=== PATIENT | female | born 1945 | race Caucasian/White ===

== ENCOUNTER 2020-02-21 03:06 | Outpatient (CLI) | payer MEDICARE, OTHER, SELFPAY ==
--- NOTE | 2020-02-21 11:03 | DI.CTLCSR_ITS ---
EXAM: CT CHEST LUNG CANCER SCREEN CLINICAL HISTORY: FORMER SMOKER, Z87.891, SCREENING FOR LUNG CA TECHNIQUE: COMPARISON: CT CT CHEST WO CONTRAST from 03/11/2019 FINDINGS: CT examination the chest was performed utilizing low-dose lung cancer screening protocol. Images obtained through the upper abdomen show grossly unremarkable appearance of visualized portions of liver, spleen, pancreas, adrenals, and kidneys. No mediastinal or hilar adenopathy. Note is made of dilatation of the main pulmonary artery at 46 mi llimeters, right pulmonary artery also dilated at 34 millimeters, left pulmonary artery 25 millimeter diameter. Thoracic aorta is of normal diameter. Coronary artery calcifications noted. There are moderate to severe changes of centrilobular emphysema. Mild mosaic attenuation noted parti cularly in the lung bases. Tracheobronchial tree grossly unremarkable. There are areas of apparent scarring in right middle lobe and lingula unchanged in appearance comparison prior CT of February 2019 from [facility]. No new intrapulmonary nodule seen. IMPRESSION: Stable areas of scarring in lingula and right middle lobe. No intrapulmonary nodule. Lung RADS Cat 2 - Benign Appearance / Behavior: Nodules with a very low likelihood of becoming a clin ically active cancer due to size or lack of growth Continue annual LDCT screening in 12 months.
== END 2020-02-21 03:26 ==
PROVIDERS: PCP Family Medicine; Visit Provider Internal Medicine
DX: Z12.2 Encounter for screening for malignant neoplasm of respiratory organs (principal); Z87.891 Personal history of nicotine dependence; J43.9 Emphysema, unspecified; R91.8 Other nonspecific abnormal finding of lung field
CPT/HCPCS: G0297

== ENCOUNTER 2020-02-26 02:05 | Outpatient (CLI) | payer MEDICARE, OTHER, SELFPAY ==
--- NOTE | 2020-02-26 10:31 | DI.US_ITS ---
APPROVED REPORT EXAM: Comprehensive 2D, Doppler, and color-flow Echocardiogram Patient Location: Out-Patient Exterminator Termite: Katalina Cervantes RDCS (AE) Indications: SOB, COPD Other Information Study Quality: Fair Conclusion Left Ventricle : The left ventricle is normal size. The left ventricular systolic function is normal. The left ventricular ejection fraction is within the normal range. Mild concentric left ventricular hypertrophy. There is normal LV segmental wall motion. The left ventricular diastolic function is nor mal. LVEF is 45-50%. Right Ventricle : Right ventricle is not well visualized. Right ventricular systolic function could n ot be assessed. Atria : The left atrium size is normal. Right atrium is not well visualized. Valves: There are no hemodynamically significant valvular lesions. Great Vessels : The aortic root is normal in size. The ascending aorta is mildly dilated. IVC is norm al in size and collapses >50% with inspiration. Please see remainder of study for further details. Wall motion Left Ventricle The left ventricle is normal size. The left ventricular systolic function is normal. The left ventric ular ejection fraction is within the normal range. Mild concentric left ventricular hypertrophy. Ther e is normal LV segmental wall motion. The left ventricular diastolic function is normal. There is no ventricular septal defect visualized. LVEF is 45-50%. Right Ventricle Right ventricle is not well visualized. Right ventricular systolic function could not be assessed. Atria The left atrium size is normal. Right atrium is not well visualized. The interatrial septum is intact with no evidence for an atrial septal defect. Aortic Valve Aortic valve is trileaflet. Aortic valve is calcified. No hemodynamically significant valvular aortic stenosis. No aortic regurgitation is present. Mitral Valve The mitral valve is normal in structure. No evidence of mitral valve stenosis. Trace mitral regurgita tion. Tricuspid Valve The tricuspid valve is normal in structure. There is no tricuspid valve stenosis. Trace tricuspid reg urgitation. Unable to assess PA pressure. Pulmonic Valve The pulmonary valve is normal in structure. There is no pulmonic valvular stenosis. Trace pulmonic re gurgitation. Great Vessels The aortic root is normal in size. The ascending aorta is mildly dilated. IVC is normal in size and c ollapses >50% with inspiration. Pericardium Prominent anterior epicardial fat pad is present. 2D Dimensions IVSD d PLAX 1.13 cm F: 0.6-1.0 LV Vol A2C d MOD 57.4 mL LVPW d PLAX 1.12 cm F: 0.6 - 1.0 LV Vol A4C d MOD 79.2 mL LVID d PLAX 4.45 cm F: 3.8 - 5.2 LA vol/ BSA A2C s A-L 25.3 mL/m2 LVDs 3.20 cm F: 2.2 - 3.5 LA vol/ BSA A4C s A-L 34.6 mL/m2 Ao Root d 3.24 cm F: 2.7 - 3.3 LA Vol/ BSA Biplane s A-L 30.2 mL/m2 RA Area A4C 16.71 cm2 LA Area A4C s MOD 20.43 cm2 RA Vol/ BSA A4C s A-L 23.2 mL/m2 LA Area A2C s MOD 17.12 cm2 Ao Asc Diam d 3.48 cm F: 2.3 - 3.1 LV EF A4C MOD 45.1 % LV EF Teichholz 53.8 % LV EF A2C MOD 49.9 % LVEF (Carrillo's) 47.36 % F: 54 - 74 LV EF Biplane MOD 47.4 % LV Volume 56.02 mL F: 46 - 106 SV 33.69 mL LV Volume Index 32.19 mL/m2 F: 29 - 61 SV Index 19.38 mL/m2 LV Vol Biplane MOD 71.1 mL FS 27.65 % M-Mode TAPSE 2.53 cm (M/F) >1.7 LV Diastology MV E' medial 0.073 (>0.07 m/s) E/A Ratio 0.7 LV E/e MED 7.75 (<14) MV E Vmax 0.57 (0.4-1.3 m/s) MV E' lateral 0.064 (>0.1 m/s) MV A Vmax 0.85 (0.4-1.3 m/s) LV E/e LAT 8.90 (<14) MV E/A Ratio 0.63 MV E/E' medial 7.76 MV E/E' lateral 8.95 Aortic Valve LVOT Area 3.80 cm2 AoV Area Vmax 1.54 cm2 LVOT Vmax 0.85 m/s AoV Area/ BSA (Vmax) 0.89 cm2/m2 LVOT Mean Sriram. 0.58 m/s VIRGINIE Mean Sriram. 1.42 cm2 LVOT Peak Grad 2.9 mmHg VIRGINIE Mean Sriram. Index 0.82 cm2/m2 LVOT Mean Grad 1.5 mmHg LVOT VTI 0.174 m LVOT Diam s 2.15 cm AoV Vmax 2.09 m/s Velocity Ratio 0.40 AoV Mean Sriram. 1.55 m/s AoV Peak Grad 17.5 mmHg LVOT SV 65.96 mL AoV Mean Grad 10.8 mmHg AoV VTI 0.412 m AoV Area VTI 1.60 cm2 AoV Area/ BSA (VTI) 0.92 cm/m2 Mitral Valve MV DT 227 (160-240 msec) MV PHT 66 msec MV Area PHT 3.35 cm2 Pulmonary Valve PV Vmax 1.10 (0.5-1.5 m/s) RVOT Peak Gr. 2.37 mmHg PV Peak Grad 4.9 mmHg RVOT Mean Gr. 1.00 mmHg PV Mean Grad 2.9 mmHg RVOT VTI 0.133 m PV VTI 0.174 m RVOT Vmax 0.77 m/s
== END 2020-02-26 02:25 ==
PROVIDERS: PCP Family Medicine; Visit Provider Internal Medicine
DX: R06.02 Shortness of breath (principal); J44.9 Chronic obstructive pulmonary disease, unspecified
CPT/HCPCS: 93306

== ENCOUNTER → 2020-03-16 09:15 | Outpatient (BNVA) | payer MEDICARE, OTHER, SELFPAY | PROVIDERS: PCP Family Medicine; Referring Provider Internal Medicine; Visit Provider Internal Medicine Cardiovascular Disease | DX: R06.9 Unspecified abnormalities of breathing (principal); J44.9 Chronic obstructive pulmonary disease, unspecified; Z99.81 Dependence on supplemental oxygen; Z87.891 Personal history of nicotine dependence | CPT/HCPCS: 99203 ==

== ENCOUNTER → 2024-12-25 08:56 | Outpatient (BNVA) | payer MEDICARE, OTHER, SELFPAY | PROVIDERS: PCP Family Medicine; Referring Provider Family Medicine; Visit Provider Physician Assistant Surgical | DX: J96.11 Chronic respiratory failure with hypoxia (principal); J96.12 Chronic respiratory failure with hypercapnia; J44.9 Chronic obstructive pulmonary disease, unspecified; J43.1 Panlobular emphysema; R60.0 Localized edema; G47.33 Obstructive sleep apnea (adult) (pediatric); I50.20 Unspecified systolic (congestive) heart failure | CPT/HCPCS: 99205; 36415 ==

== ENCOUNTER 2024-12-25 18:54 | Outpatient (REF) | payer MEDICARE, OTHER, SELFPAY ==
[2024-12-25 10:01] LABS: BE (Venous) 10 mmol/L (-2-3); HCO3 (Venous) 36 mmol/L (23-28); O2 Sat (Venous) 82 %; TCO2 (Venous) 32 mmol/L (24-29); pCO2 (Venous) 60 mmHg (41-51); pH (Venous) 7.38 (7.31-7.41); pO2 (Venous) 44 mmHg
[2024-12-25 10:02] LABS: Abs Immature Grans 0.06 10^3/uL (0.0-0.06); Absolute Basophil Count 0.04 10^3/uL (0.0-0.2); Absolute Eosinophil Count 0.04 10^3/uL (0.0-0.7); Absolute Lymphocyte Count 1.02 10^3/uL (1.2-3.4); Absolute Monocyte Count 0.33 10^3/uL (0.1-0.8); Absolute Neutrophil Count 9.74 10^3/uL (1.2-6.7); Basophils % 0.4 %; Eosinophils % 0.4 %; HCT 41.5 % (36.0-46.0); HGB 12.9 g/dL (11.2-15.7); Immature Grans % 0.5 %; Lymphocytes % 9.1 %; MCH 30.7 pg (27.0-33.0); MCHC 31.1 % (32.0-36.0); MCV 99 fL (80-95); MPV 11.2 fL (8.0-11.0); Monocytes % 2.9 %; Neutrophils % 86.7 %; Platelet Count 194 10^3/uL (130-400); RDW 13.2 % (11.7-14.6); RDW-SD 47.5 fL; WBC 11.23 10^3/uL (4.4-10.8)
[2024-12-25 10:28] LABS: ALT 30 U/L (14-59); AST 15 U/L (15-37); Albumin 3.6 g/dL (3.4-5.0); Alkaline Phosphatase 94 U/L (46-116); Anion Gap 4.6 mmol/L (3-11); BUN 11 mg/dL (7-18); Bilirubin, Total 0.4 mg/dL (0.2-1.0); CO2 36.4 mmol/L (21.0-32.0); CREATININE 0.7 mg/dL (0.55-1.02); Calcium 9.7 mg/dL (8.5-10.1); Chloride 101 mmol/L (98-107); Estimated GFR 90.14 (mL/min/1.73m2); Glucose 236 mg/dL (74-106); NT-proBNP 105 pg/mL (<300); Potassium 4.6 mmol/L (3.5-5.1); Sodium 142 mmol/L (136-145); Total Protein 7.3 g/dL (6.4-8.2)
== END 2024-12-25 18:55 | disposition home or self-care (01) ==
LOC: LBN 18:54
PROVIDERS: PCP Family Medicine; Visit Provider Physician Assistant Surgical
DX: I50.9 Heart failure, unspecified (principal); J44.9 Chronic obstructive pulmonary disease, unspecified
CPT/HCPCS: 80053; 82805; 83880; 85025

== ENCOUNTER 2024-12-30 00:55 | Outpatient (CLI) | payer MEDICARE, SELFPAY ==
[2024-12-30] MEDS: Levalbuterol HFA 15 GM INH 4 PUFF IH (11:45)
[2024-12-30] MEDS: Inhaler, Assist Device 1 EACH MC (11:45)
--- NOTE | 2024-12-30 13:05 | RESPIRATORY ---
Pt came into Respiratory Therapy department today as an outpatient. Upon arrival, patient was on room air and asking to be placed on supplemental oxygen, to which a discussion of home oxygen and current prescription was initiated. Patient's family brought in her current portable concentrator, which was stated to be broken and not working. This RT checked out machine and found it was equipment bought online through a third republican, this RT was unfamiliar with the brand name printed on machine, and was unable to turn it on to check function and settings. PFT and exercise oximetry were performed, and patient was set up with overnight oximetry to take home with her. It was found that patient was using anywhere from 6-10L O2 at will in the home. During the exercise oximetry with Sawyer Kwan and myself, we found that patient was able to maintain adequate SpO2 (within the 88-92% range) while resting on room air. Pt and family stated that she does not typcially walk very far in the home, so, during exrcise oximetry, patient walked 20 feet comfortably before needing a break. During exertion, patient was found to need 2L O2. This RT called Angelo, informed provider Perla Hill, and sent new prescription information through the [employer] platform for RA at rest, 2L with ambulation. Patient's current high-flow concentrator at home will be changed out to a regular low-flow concentrator for safety and accuracy. Pt's current portable tank system (which was stated that she does not use), will be changed to a POC from [facility].
--- NOTE | 2025-01-05 14:56 | W.PFT ---
Date of service: 12/30/24 Time of Service: 10:04 Pulmonary Function Test Result Indications: COPD Interpretation Spirometry: There is severe airflow limitation. No bronchodilator response Lung Volumes: Normal lung volumes Airway Pressure: Increased airways resistance Impression Severe airflow obstruction Clinical Correlation therefore is recommended.
== END 2024-12-30 00:56 | disposition home or self-care (01) ==
LOC: RT 00:55
PROVIDERS: PCP Family Medicine; Visit Provider Student in an Organized Health Care Education/Training Program
DX: J44.9 Chronic obstructive pulmonary disease, unspecified (principal)
CPT/HCPCS: 94060; 94618; 94726; 94762

== ENCOUNTER 2025-01-20 02:43 | Outpatient (CLI) | payer MEDICARE, SELFPAY ==
--- NOTE | 2025-01-20 06:30 | DI.US_ITS ---
APPROVED REPORT EXAM: Comprehensive 2D, Doppler, and color-flow Echocardiogram Patient Location: Out-Patient Chopping Machine Operator: Katalina Cervantes RDCS (AE) Indications: Edema, Pulmonary HTN, Heart failure, COPD Other Information Study Quality: Poor. Technically limited study due to body habitus, inability to position patient. Conclusion Technically difficult and suboptimal study Left ventricle appears grossly normal in size wall thickness and systolic function Right ventricular size and function are grossly normal Both atria appear normal in size Aortic valve is calcified without stenosis or regurgitation Within the limits of the study no additional valvular disease is identified Wall motion Left Ventricle Technically limited parasternal imaging due to body habitus. The overall left ventricular systolic function appears normal. Regional wall motion is grossly normal. LVEF is 52%. Right Ventricle Right ventricle is grossly normal in size. Right ventricular systolic function is grossly normal. Atria The left atrium size is normal. The right atrium size is normal. Aortic Valve Aortic valve is calcified. No hemodynamically significant valvular aortic stenosis. No aortic regurgitation is present. Mitral Valve Mild mitral annular calcification. No evidence of mitral valve stenosis. Trace mitral regurgitation. Tricuspid Valve The tricuspid valve is normal in structure. There is no tricuspid valve stenosis. Trace tricuspid regurgitation. Unable to assess PA pressure. Pulmonic Valve Pulmonic valve is not well visualized. Great Vessels The aortic root is normal in size. The ascending aorta is normal in size. The IVC was not visualized. Technically limited subcostal imaging. Pericardium Technically limited subcostal imaging. 2D Dimensions Ao Root d 3.34 cm F: 2.7 - 3.3 Ao Asc Diam d 3.17 cm F: 2.3 - 3.1 Auto EF LV EDV A4C 66.1 mL LV EDV A2C 98.7 mL LV EDV BP 80.1 mL LV ESV A4C 31.6 mL LV ESV A2C 48.1 mL LV ESV BP 39.1 mL LVEF(%) A4C 52.2 % LVEF(%) A2C 51.3 % LVEF(%) BP 51.1 % LV SV A4C 34.6 ml LV SV A2C 50.6 ml LV SV BP 40.9 ml LV CO A4C 3.4 L/min LV CO A2C 4.8 L/min LV CO BP 4.1 L/min HR A4C 97.83 BPM HR A2C 94.25 BPM LV EDV Index (BP) LA Volume LA Length A4C 5.3 cm LA Length A2C 5.2 cm LA Area A4C s 14.59 cm2 LA Area A2C s 16.44 cm2 LA Vol A4C A-L 33.98 mL LA Vol A2C A-L 44.48 mL LA Vol Biplane A-L 39.5 mL LA Vol/BSA A4C A-L LA Vol/BSA A2C A-L LA Vol/BSA BP A-L 19.2 mL/m2 LA Vol A4C MOD 30.6 mL LA Vol A2C MOD 41.9 mL LA Vol BP MOD 36.2 mL RA Volume RA Area A4C 14.4 cm2 RA ESV A4C (A-L) 32.8mL RA Vol/BSA A4C A-L RA Length A4C 5.4 cm RA ESV A4C (MOD) 31.4mL LV Diastology MV E' medial 0.066 (>0.07 m/s) MV E Vmax 0.63 (0.4-1.3 m/s) MV E/E' MED 9.57 (<14) MV A Vmax 0.90 (0.4-1.3 m/s) MV E' lateral 0.062 (>0.1 m/s) E/A Ratio 0.7 MV E/E' LAT 10.27 (<14) MV E' Average 0.064 m/s MV E/E'(average) 9.91 Aortic Valve AoV Vmax 2.59 m/s LVOT Vmax 0.79 m/s AoV Peak Grad 26.7 mmHg LVOT Peak Grad 2.5 mmHg AoV Area (Vmax) 1.01 cm2 LVOT VTI 0.194 m AoV VTI 0.460 m LVOT Mean Grad 1.3 mmHg AoV Mean Sriram. 2.01 m/s LVOT SV 63.78 mL AoV Mean Grad 17.8 mmHg LVOT Diam s 2.00 cm AoV Area (VTI) 1.39 cm2 AV Regurg Peak Gr. 26.73 mmHg Velocity Ratio 0.31 Mitral Valve MV DT 316 (160-240 msec) MV Vmax TIPS 0.92 m/s MV Mean Grad 1.2 (<2mmHg) MV VTI 0.188 m Tricuspid Valve TV S' 0.10 m/s
== END 2025-01-20 03:03 ==
LOC: DI 02:43
PROVIDERS: PCP Family Medicine; Visit Provider Internal Medicine Cardiovascular Disease
DX: I50.9 Heart failure, unspecified (principal); J44.9 Chronic obstructive pulmonary disease, unspecified
CPT/HCPCS: 93306

== ENCOUNTER → 2025-01-29 08:35 | Outpatient (BNVA) | payer MEDICARE, SELFPAY | PROVIDERS: PCP Family Medicine; Referring Provider Family Medicine; Visit Provider Physician Assistant Surgical | DX: I50.20 Unspecified systolic (congestive) heart failure (principal); G47.33 Obstructive sleep apnea (adult) (pediatric); J96.12 Chronic respiratory failure with hypercapnia; J96.11 Chronic respiratory failure with hypoxia; J44.9 Chronic obstructive pulmonary disease, unspecified | CPT/HCPCS: 99215; G2212; 36415 ==

== ENCOUNTER 2025-01-29 19:14 | Outpatient (REF) | payer MEDICARE, SELFPAY ==
[2025-01-29 10:47] LABS: Anion Gap 10.6 mmol/L (3-11); BUN 10 mg/dL (7-18); CO2 30.4 mmol/L (21.0-32.0); Calcium 9.4 mg/dL (8.5-10.1); Chloride 100 mmol/L (98-107); Estimated GFR 74.44 (mL/min/1.73m2); Glucose 306 mg/dL (74-106); Potassium 4.4 mmol/L (3.5-5.1); Sodium 141 mmol/L (136-145)
== END 2025-01-29 19:15 | disposition home or self-care (01) ==
LOC: LBN 19:14
PROVIDERS: PCP Family Medicine; Visit Provider Physician Assistant Surgical
DX: I50.20 Unspecified systolic (congestive) heart failure (principal); J44.9 Chronic obstructive pulmonary disease, unspecified
CPT/HCPCS: 80048; 86200; 86038; 86431